=== PATIENT | female | born 1935 | race Caucasian/White ===

== ENCOUNTER 2017-06-03 10:57 | Emergency (ER) | payer MEDICARE ==
[~2017-06-03] VITALS: Ht 162.6 cm; Wt 150.0 kg
[~2017-06-03 10:57] MED LIST: ALLEGRA180 MG OR; ALLERGY RELF10 M1 PO; AMOXICILLIN/CL875 MG PO; AMOXICILLIN875 MG PO; ASPIRIN EC81 MG PO; AUGMENTIN875TAB PO; BACLOFEN10 MG PO; BENAZEPRIL10 MG PO; BENZONATATE200 MG PO; CIPROFLOXACN500 MG PO; FLORASTOR250 M1 PO; FLUARIX QUADRIV1 IN1 IM; HYDROCHLOROT12.5 MG OR; HYDROXYZ HCL25 MG OR; LOTENSIN HCT1 TA1 PO; LOTENSIN HCT1 TA2 PO; MEDDOSEPAK OR; MUCINEX600 MG PO; NEXIUM40 M1 PO; PANTOPRAZOLE SO40 MG PO; PROAIR HFA IN; SIMVASTATIN10 MG PO; SIMVASTATIN40 MG PO; ZETIA10 MG OR
[2017-06-03] MEDS ORDERED: ZITHROMAX250 MG PO ×2 (11:49→12:40)
[2017-06-03] MEDS ORDERED: TESSALON PER100 MG PO ×2 (11:49→12:40)
[2017-06-03 13:06] VITALS: BP 169/85
== END 2017-06-03 13:06 | disposition home or self-care (01) ==
LOC: ED 10:57
DX: S22.31XA Fracture of one rib, right side, initial encounter for closed fracture (principal); S80.12XA Contusion of left lower leg, initial encounter; R05 Cough; I10 Essential (primary) hypertension; E78.5 Hyperlipidemia, unspecified; K21.9 Gastro-esophageal reflux disease without esophagitis; F17.210 Nicotine dependence, cigarettes, uncomplicated; W01.0XXA Fall on same level from slipping, tripping and stumbling without subsequent striking against object, initial encounter; Y92.002 Bathroom of unspecified non-institutional (private) residence as the place of occurrence of the external cause

== ENCOUNTER 2017-06-20 14:33 | Emergency (ER) | payer MEDICARE ==
[~2017-06-20] VITALS: Ht 162.6 cm; Wt 69.0 kg
[~2017-06-20 14:33] MED LIST changes: +TESSALON PER100 MG PO; +ZITHROMAX250 MG PO
[2017-06-20] MEDS ORDERED: CEPHALEXIN500 M1 PO (15:22)
[2017-06-20] MEDS ORDERED: BACTRIM DS1 TAB PO (15:22)
[2017-06-20 15:29] VITALS: BP 139/66
== END 2017-06-20 15:29 | disposition home or self-care (01) ==
LOC: ED 14:33
PROC: 0H9LXZZ Drainage of Left Lower Leg Skin, External Approach (ICD-10-PCS; principal; 2017-06-20)
DX: L03.116 Cellulitis of left lower limb (principal)

== ENCOUNTER 2017-06-21 10:56 | Emergency (ER) | payer MEDICARE ==
[~2017-06-21] VITALS: Ht 162.6 cm; Wt 72.0 kg
[~2017-06-21 10:56] MED LIST changes: +BACTRIM DS1 TAB PO; +CEPHALEXIN500 M1 PO
[2017-06-21 11:34] VITALS: BP 131/53
== END 2017-06-21 11:40 | disposition home or self-care (01) ==
LOC: ED 10:56
DX: S80.12XD Contusion of left lower leg, subsequent encounter (principal); Z48.01 Encounter for change or removal of surgical wound dressing

== ENCOUNTER 2020-01-30 | Emergency (ER) | payer MEDICARE ==
[2020-01-30] MEDS ORDERED: CEPHALEXIN500 M1 PO ×2 (14:18→15:01)
[2020-01-30] MEDS ORDERED: NEXIUM40 MG PO (14:24)
[2020-01-30] MEDS ORDERED: CALCIUM PO (14:25)
[2020-01-30] MEDS ORDERED: PROAIR HFA108 MCG/AC IN (14:25)
[2020-01-30] MEDS ORDERED: [UNRECOGNIZED DRUG - OTHER] PO (14:25)
== END 2020-01-30 15:23 | disposition home or self-care (01) ==
PROC: 0HQGXZZ Repair Left Hand Skin, External Approach (ICD-10-PCS; principal; 2020-01-30)
DX: S61.412A Laceration without foreign body of left hand, initial encounter (principal); S51.011A Laceration without foreign body of right elbow, initial encounter; S61.217A Laceration without foreign body of left little finger without damage to nail, initial encounter; I10 Essential (primary) hypertension; F17.200 Nicotine dependence, unspecified, uncomplicated; W10.9XXA Fall (on) (from) unspecified stairs and steps, initial encounter; Y92.009 Unspecified place in unspecified non-institutional (private) residence as the place of occurrence of the external cause

== ENCOUNTER 2021-12-28 20:15 | Emergency (ER) | payer MEDICARE ==
[~2021-12-28] VITALS: Ht 162.6 cm; Wt 63.0 kg
[~2021-12-28 20:15] MED LIST changes: +CALCIUM PO; +NEXIUM40 MG PO; +PROAIR HFA108 MCG/AC IN; +[UNRECOGNIZED DRUG - OTHER] PO
[2021-12-28 20:32] VITALS: BP 180/80
[2021-12-28 20:45] VITALS: BP 148/66
[2021-12-28 21:05] LABS: HEMATOCRIT 40.3 % (37.0-47.0); IMMATURE GRANULOCYTES 0.1 % (0.0-5.0); MEAN CORPUSCULAR HGB 32.4 pG CALC (26.0-32.0); MEAN CORPUSCULAR HGB CONC 32.3 g/dL CAL (32.0-36.0); NEUT# 4.54 thou/uL (2.00-7.15); RED BLOOD COUNT 4.01 mill/uL (4.20-5.60); RED CELL DISTRI WIDTH 13.1 % (11.5-15.5)
[2021-12-28 21:13] LABS: MEAN CELL VOLUME 100.5 fL CALC (80.0-100.0)
[2021-12-28 21:14] VITALS: BP 182/88
[2021-12-28 21:19] LABS: ALBUMIN 4.5 g/dL (3.2-5.0); ALKALINE PHOSPHATASE 68 u/l (38-126); AMYLASE 48 u/l (30-110); ANION GAP 12 (6-22 (CALC)); BILIRUBIN, TOTAL 0.6 mg/dL (0.0-1.4); BUN 14 mg/dL (8-23); BUN/CREATININE RATIO 23 (12-20 (CALC)); CARBON DIOXIDE 27 mmol/l (22-30); CHLORIDE 101 mmol/l (95-108); CREATININE 0.6 mg/dL (0.5-1.0); GFR > 60 ML/MIN (>=60 (CALC)); GFR FOR AFR.AMER. > 60 ML/MIN (>=60 (CALC)); LIPASE 93 u/l (23-300); POTASSIUM 4.3 mmol/l (3.5-5.1); SGOT/AST 26 u/l (9-36); SODIUM 135 mmol/l (137-146); TOTAL PROTEIN 7.3 g/dL (6.3-8.2)
[2021-12-28 21:30] VITALS: BP 143/60
[2021-12-28 21:45] VITALS: BP 139/60
[2021-12-28 22:50] VITALS: BP 139/65
== END 2021-12-28 22:50 | disposition home or self-care (01) ==
LOC: ED 20:15
PROVIDERS: Family Medicine
DX: K40.90 Unilateral inguinal hernia, without obstruction or gangrene, not specified as recurrent (principal); F41.0 Panic disorder [episodic paroxysmal anxiety]; I10 Essential (primary) hypertension; E78.5 Hyperlipidemia, unspecified; K21.9 Gastro-esophageal reflux disease without esophagitis; F17.200 Nicotine dependence, unspecified, uncomplicated; Z85.3 Personal history of malignant neoplasm of breast
CPT/HCPCS: J2060; Q9967